=== PATIENT | male | born 1990 | race Two or more races ===

== ENCOUNTER 2022-12-18 18:36 | Emergency (ER) | payer MEDICAID ==
[~2022-12-18] VITALS: Ht 167.6 cm; Wt 65.0 kg
[~2022-12-18 18:36] MED LIST: HYDR-3964 PO; LEVO750T68 PO; LINE600T11 PO
[2022-12-18 18:53] VITALS: BP 129/77
== END 2022-12-18 20:54 | disposition left against medical advice (07) ==
LOC: ER 18:36
DX: S61.217D Laceration without foreign body of left little finger without damage to nail, subsequent encounter (principal); Z48.00 Encounter for change or removal of nonsurgical wound dressing; X58.XXXD Exposure to other specified factors, subsequent encounter
CPT/HCPCS: 99281